=== PATIENT | female | born 1990 | race African-American/Black ===

== ENCOUNTER 2023-06-02 10:46 | Emergency (ER) | payer MEDICAID ==
[~2023-06-02] VITALS: Ht 170.2 cm; Wt 82.2 kg
[2023-06-02 12:04] LABS: Urine Bacteria NONE SEEN /hpf (None Seen); Urine Blood Negative /uL (Negative); Urine Clarity Clear (Clear); Urine Color Colorless (Yellow); Urine Protein, UAD Negative (Negative); Urine Specific Gravity 1.016 (1.001-1.035); Urine Urobilinogen Normal (Negative); Urine WBC 1 /hpf (0 - 5); Urine pH 6.5 (5.0-8.0)
[2023-06-02 12:11] VITALS: BP 141/93; PULSE 78; RESP 16; TEMP 97; O2SAT 100
== END 2023-06-02 14:11 | disposition home or self-care (01) ==
LOC: ER 10:46
DX: O26.891 Other specified pregnancy related conditions, first trimester (principal); R10.2 Pelvic and perineal pain; Z97.5 Presence of (intrauterine) contraceptive device; Z3A.01 Less than 8 weeks gestation of pregnancy
CPT/HCPCS: 36415; 76801; 76817; 81001; 81025; 84702

== ENCOUNTER 2023-07-24 00:23 | Emergency (ER) | payer MEDICAID ==
[~2023-07-24] VITALS: Ht 170.2 cm; Wt 84.6 kg
[2023-07-24 00:45] VITALS: BP 127/67; PULSE 108; RESP 16; O2SAT 99
== END 2023-07-24 07:42 | disposition home or self-care (01) ==
LOC: ER 00:23
DX: O20.0 Threatened abortion (principal); Z3A.30 30 weeks gestation of pregnancy